=== PATIENT | female | born 1980 | race Caucasian/White ===

== ENCOUNTER 2017-11-12 08:15 | Outpatient (RCR) | payer OTHER ==
[2017-05-11 12:15] VITALS: Wt 68.5 kg
[~2017-11-12 08:15] MED LIST: 5-HY100C PO; ALBU8.5H IH; ALBU8.5H12 IH; AMIT75TA42 PO; APIX2.5T PO; BIRTH CONTROL PILL; CEL100 PO; CHLO1TAB PO; CHOL200074 PO; CRAN500C11 PO; DEXL60CA6 PO; DOXE6TAB4 PO; IBUP800T37 PO; L. A1CAP8; LOR5/325 PO; LORA-629 PO; METF-410 PO; METH1TAB18 PO; MULT-865 PO; OMEP40CA79 PO; S-AD200T PO; SACC250C6; SPIR25TA78 PO; WARF-1 PO; ZINC50TA43 PO; [UNRECOGNIZED DRUG - CODE] SQ
[2017-11-12 08:26] VITALS: BP 108/74
--- NOTE | 2017-11-12 16:18 | ONCOLOGY FOLLOW UP NOTE ---
EVENT DATE: November 12, 2017 DIAGNOSES 1. DVT of left lower extremity. 2. 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 3. Migraine headache. 4. Borderline hypercholesterolemia. 5. History of mononucleosis. CHIEF COMPLAINT The patient is here today for followup of her hypercoagulable state and DVT of the left lower extremity. HEMATOLOGY HISTORY Myrna Davila is a 37-year-old female who was diagnosed with DVT of the left lower extremity in August 2012. The patient was maintained on Coumadin for six months. The patient as off Coumadin after that and after six months, she had another Doppler ultrasound of the left lower extremity done on November 30, 2013 which showed evidence of chronic appearing, nonocclusive deep venous thrombosis of the distal portion of the left superficial femoral vein and the popliteal vein. No evidence of acute DVT. No evidence of acute pathology otherwise. The patient was maintained after that on blood thinner, and she developed bleeding with Coumadin, so the patient was maintained after that on Eliquis. She had a thrombophilia workup done when she had her blood clot, and the protein C was normal at 130. Protein S was normal at 102%. Antithrombin III was mildly low at 71. Anticardiolipin IgG and IgM were normal. Prothrombin gene mutation was negative. Factor V Leiden mutation was also negative. Thrombophilia workup came back negative except for heterozygous state for methylene tetrahydrofolate reductase C677T mutation. HISTORY OF PRESENT ILLNESS Patient is here today for followup of her hypercoagulable state and DVT of the left lower extremity. She is doing very well currently. She has only mild dry cough from recent upper respiratory tract infection, and other than that she does not have any other problem. PAST MEDICAL HISTORY 1. DVT of the left lower extremity diagnosed August 2012. 2. Migraine headache. 3. Borderline hypercholesterolemia. 4. Mononucleosis diagnosed in 2001. PAST SURGICAL HISTORY 1. In 2004, she had wisdom tooth extraction. 2. September 05, 2014, the patient had left oophorectomy for a cyst and cystectomy of the right ovary. SOCIAL HISTORY The patient is . She does not have children. She is a library employee. She has about twenty drinks per year. She denies any abuse of tobacco or illicit drugs. FAMILY HISTORY A paternal grandfather had colon cancer at the age of 52 and maternal grandfather had renal cancer in his seventies. CURRENT MEDICATIONS 1. Dexilant 60 mg once daily. 2. Celebrex 200 mg two times daily. 3. Loratadine 10 mg once daily. 4. Solaray female hormone 920 mg two times daily. 5. Chlorophyll 100 mg once daily. 6. Zinc gluconate 30 mg daily. 7. Vitamin D3 at 2000 once daily. 8. Cranberry supplement 500 mg daily. 9. Probiotic 5 daily and once daily. 10. Multivitamin once daily. 11. Metformin 1000 mg daily. 12. Spironolactone 75 mg daily, 25 mg and 50 mg daily. ALLERGIES PENICILLIN which causes anaphylaxis. SULFA which causes joint swelling and hives. REVIEW OF SYSTEMS CONSTITUTIONAL: No appetite or weight change. No fever, chills or sweating. No recent infection. HEENT: Ears: No tinnitus or hearing problem. Nose: She has occasional epistaxis. Throat: No sore throat or mouth ulcers. Eyes: No diplopia or visual changes. RESPIRATORY: Patient has some dry cough. No shortness of breath. No expectoration or hemoptysis. CARDIOVASCULAR: No chest pain, orthopnea, or paroxysmal nocturnal dyspnea (PND) . No edema. No palpitations. GASTROINTESTINAL: The patient has some nausea due to her . GENITOURINARY: No hematuria or dysuria. MUSCULOSKELETAL: No pain in the muscles, joints or bones. NEUROLOGICAL: No tingling or numbness in the hands or feet. No headaches or convulsions. HEMATOLOGIC/LYMPHATIC: She bruises easily. No enlarged lymph nodes. SKIN: No skin rash or lumps. PSYCHIATRIC: No anxiety or depression. PHYSICAL EXAMINATION GENERAL: Looks stable. Well-developed, well-nourished, and in no acute distress. VITAL SIGNS: Blood pressure 108/74, pulse 91 per minute, respirations 16 per minute, temperature 99.8, pulse ox 97% on room air. HEENT: Head: Atraumatic. No sinus tenderness to palpation. Eyes: No icterus or conjunctivitis. Mouth and throat: No oral thrush or mucositis. NECK: Supple. No cervical or supraclavicular lymphadenopathy. LUNGS: Clear to auscultation and percussion bilaterally. HEART: Regular rate and rhythm. No gallops, murmurs, clicks or rubs. ABDOMEN: Distended because of her . EXTREMITIES: No cyanosis, clubbing or edema. LYMPHATICS: No peripheral lymphadenopathy. NEUROLOGICAL: Conscious, alert and oriented times three. No focal motor or sensory deficits. PSYCHIATRIC: Mood and affect appear normal. SKIN: No skin rash, bruise or purpuric eruption. ASSESSMENT 1. Deep venous thrombosis, left lower extremity, while the patient was on hormonal therapy for bleeding. She received Coumadin for six months. After that Coumadin was discontinued. She had a Doppler ultrasound December 01, 2013 which revealed the presence of nonocclusive thrombus of the left superficial femoral vein and left popliteal vein, but there was no evidence of acute thrombosis. Thrombophilia workup came back negative, except for heterozygous state for methylenetetrahydrofolate reductase mutation C677T mutation. Patient was advised to use prophylactic Lovenox after discontinuation of her Coumadin at periods of increased risk of blood clotting. She got after that and the patient received full-dose lovenox 60 mg twice daily during her and for eight weeks after delivery. Patient is doing fine currently. She is not on any anticoagulation. Besides lovenox, also patient was switched during her post (180) period to Coumadin, which was used for a total of two months. She is doing fine currently. I am planning to see her again in six months with fasting homocysteine level, and in the meantime we will continue the multivitamins and folic acid. 2. Heterozygous state for methylenetetrahydrofolate reductase mutation C677T mutation C677%. Currently on folic acid and vitamin B complex. Will continue the same. Her last homocysteine level was 5. I am planning to check it with her next visit in six months. 3. Polycystic ovarian syndrome. 4. History of migraines. PLAN 1. Continue followup. 2. Patient to return in six months with fasting homocysteine level. 3. Patient is to contact us for any new concerns or complaints. ALLYN
== END 2017-11-13 09:48 | disposition home or self-care (01) ==
LOC: ONC 08:15
PROVIDERS: ATTEND Internal Medicine Hematology
DX: Z86.718 Personal history of other venous thrombosis and embolism (principal); E72.12 Methylenetetrahydrofolate reductase deficiency; E28.2 Polycystic ovarian syndrome; E78.00 Pure hypercholesterolemia, unspecified; Z79.899 Other long term (current) drug therapy; R05 Cough
CPT/HCPCS: 99212

== ENCOUNTER 2018-02-28 21:19 | Emergency (ER) | payer OTHER ==
[2017-05-11 12:15] VITALS: Wt 68.0 kg
[~2018-02-28 21:19] MED LIST changes: -METF-410 PO; +METF-411 PO; -SPIR25TA78 PO; +SPIR25TA80 PO
[2018-02-28] MEDS ORDERED: NS(*) 0.9% 1000 ML BAG 1,000 ML IV ONE (21:38)
[2018-02-28] MEDS ORDERED: ONDANSETRON 4 MG/2 ML VIAL IVP ONE (21:40)
[2018-02-28] MEDS ORDERED: fentaNYL CITR 100 MCG/2 ML AMP IVP ONE (21:40)
[2018-02-28] MEDS ORDERED: SPIR25TA80 PO (21:40)
[2018-02-28] MEDS ORDERED: METF-411 PO (21:40)
--- NOTE | 2018-02-28 21:46 | ER Report ---
History and Physical Time Seen By MD: 21:43 Hx. of Stated Complaint: PT REPORTS THAT SHE DEVELOPED A SHARP PAIN IN HER RIGHT ABDOMIN ABOUT ONE HOUR AGO. PT REPORTS THAT SHE HAS A CHRONIC CYST ON HER RIGHT OVARY AND THAT HER LEFT OVARY HAS BEEN REMOVED. HPI/ROS CHIEF COMPLAINT: Lower abdominal pain HISTORY OF PRESENT ILLNESS: Patient is a 37-year-old female here with complaints of right lower and periumbilical abdominal pain which started approximately 2044. Patient reports associated nausea without vomiting. She did have a prior history of a left oophrectomy however denies other abdominal surgeries. Pain is primarily located in the right lower quadrant of the abdomen. She reports that the pain is sharp and has been constant since time of onset. Denies urinary complaints, difficulty passing bowel movements, chest pain , shortness of breath. Patient is afebrile at time of evaluation. REVIEW OF SYSTEMS: Constitutional: No fever, + chills. Eyes: No discharge. ENT: No sore throat. Cardiovascular: No chest pain, no palpitations. Respiratory: No cough, no shortness of breath. Gastrointestinal: + RLQ/periumbilical abdominal pain, no vomiting, + nausea Genitourinary: No hematuria. Musculoskeletal: No back pain. Skin: No rashes. Neurological: No headache. Allergies: Coded Allergies: Penicillins (Verified Allergy, Intermediate, HIVES, 02/28/18) Sulfa (Sulfonamide Antibiotics) (Verified Allergy, Intermediate, JOINT SWELLING, 02/28/18) gluten (Verified Adverse Reaction, Unknown, ? ABD PROBLEM, AVOIDS, 02/28/18 ) Home Meds Active Scripts Oxycodone Hcl/Acetaminophen (PERCOCET 5-325 MG TABLET) 1 Each Tablet, 1 EACH PO Q4H Y for PAIN, #6 TAB 0 Refills Prov:ALEXI MAN DO 02/28/18 Ondansetron (ZOFRAN ODT) 4 Mg Tab.rapdis, 4 MG PO Q6H Y for NAUSEA/VOMITING, # 20 TAB.CATA 0 Refills Prov:ALEXI MAN DO 02/28/18 Reported Medications Spironolactone (SPIRONOLACTONE) 25 Mg Tablet, 75 MG PO DAILY, TAB 02/28/18 Metformin Hcl (METFORMIN HCL) 500 Mg Tablet, 1 TAB PO QDAY, TAB 02/28/18 Discontinued Reported Medications Albuterol Sulfate 90 Mcg/Act (PROAIR HFA 90 MCG/ACT) 8.5 Gm Hfa.aer.ad, 1-2 PUFF IH 3-4XD, INHALER 05/11/17 Metformin Hcl (METFORMIN HCL) 500 Mg Tablet, 500 MG PO BID, TAB 06/01/15 Multivitamin (DAILY MULTIPLE VITAMIN) 1 Each Tablet, 1 EACH PO DAILY 12/15/14 Cholecalciferol (Vitamin D3) (VITAMIN D-3) 2,000 Unit Capsule, 2000 UNIT PO DAILY, CAPSULE 12/15/14 Zinc Gluconate (ZINC) 50 Mg Tablet, 30 MG PO DAILY 12/15/14 Chlorophyllin/Charlotte (CHLOROPHYLL 20 MG TABLET) 1 Each Tablet, 100 MG PO DAILY 12/15/14 Loratadine (LORATADINE) 10 Mg Tablet, 10 MG PO DAILY 12/15/14 Dexlansoprazole (DEXILANT) 60 Mg Cap., 60 MG PO DAILY 12/15/14 Discontinued Scripts Ibuprofen (IBUPROFEN) 800 Mg Tablet, 800 MG PO Q8H@0400,1200,2000, #30 TAB 0 Refills Prov:MARJAN MENDOZA DO 05/13/17 Hx Smoking: No Smoking Status: Never Smoker Constitutional Vital Sign - Last 24 Hours 02/28/18 02/28/18 02/28/18 02/28/18 21:34 21:40 21:49 22:00 Temp 98.8 Pulse 76 77 71 Resp 14 B/P (MAP) 109/72 (84) 109/72 105/67 (80) Pulse Ox 95 94 97 O2 Delivery Room Air 02/28/18 02/28/18 02/28/18 02/28/18 22:04 22:09 22:13 22:30 Pulse 67 63 B/P (MAP) 100/59 (73) Pulse Ox 86 97 O2 Flow Rate 2.0 02/28/18 02/28/18 02/28/18 02/28/18 22:39 23:24 23:39 23:54 Pulse 69 64 62 73 Pulse Ox 97 100 99 99 03/01/18 00:04 B/P (MAP) 102/69 (80) Physical Exam General Appearance: The patient is alert, has no immediate need for airway protection and no signs of toxicity. + Mild distress secondary to pain Eyes: Pupils equal and round no pallor or injection. ENT, Mouth: Mucous membranes are moist. Respiratory: There are no retractions, lungs are clear to auscultation. Cardiovascular: Regular rate and rhythm. Gastrointestinal: Abdomen is soft and + tender to palpation in the periumbilical and RLQ, no masses, bowel sounds normal. Neurological: No focal neurological deficits Skin: Warm and dry, no rashes. Musculoskeletal: Neck is supple non tender. Extremities are nontender, nonswollen and have full range of motion. DIFFERENTIAL DIAGNOSIS: After history and physical exam differential diagnosis was considered for abdominal pain including but not limited to appendicitis, cholecystitis, gastritis and urinary tract infection, ovarian torsion Medical Decision Making Data Points Result Diagram: 02/28/18214902/28/182149 Laboratory Hematology Test 02/28/18 21:26 02/28/18 21:50 Urine Color Straw Urine Clarity Clear Urine pH 6.0 pH (4.8-9.5) Urine Specific Good[place] 1.013 Urine Protein Negative mg/dL (NEGATIVE) Urine Glucose (UA) Negative mg/dL (NEGATIVE) Urine Ketones Negative mg/dL (NEGATIVE) Urine Blood Negative (NEGATIVE) Urine Nitrite Negative (NEGATIVE) Urine Bilirubin Negative (NEGATIVE) Urine Urobilinogen Negative mg/dL (0.2-1.9) Urine Leukocyte Esterase Negative (NEGATIVE) Urine RBC <1 /HPF (0-2/HPF) Urine WBC <1 /HPF (0-5/HPF) Urine Squamous Epithelial Cells Many /LPF (</=FEW) Urine Bacteria Negative /HPF (NONE-FEW) Urine Mucus None /HPF (NONE-FEW) Red Blood Count 4.72 M/uL (4.17-5.56) Mean Corpuscular Volume 83.6 fL (80.0-96.0) Mean Corpuscular Hemoglobin 28.9 pg (26.0-33.0) Mean Corpuscular Hemoglobin Concent 34.6 g/dL (32.0-36.0) Red Cell Distribution Width 13.2 % (11.5-14.5) Mean Platelet Volume 7.3 fL (7.2-11.1) Neutrophils (%) (Auto) 53.9 % (39.4-72.5) Lymphocytes (%) (Auto) 36.6 % (17.6-49.6) Monocytes (%) (Auto) 6.4 % (4.1-12.4) Eosinophils (%) (Auto) 2.1 % (0.4-6.7) Basophils (%) (Auto) 1.0 % (0.3-1.4) Nucleated RBC Relative Count (auto) 0.0 /100WBC Neutrophils # (Auto) 4.5 K/uL (2.0-7.4) Lymphocytes # (Auto) 3.1 K/uL (1.3-3.6) Monocytes # (Auto) 0.5 K/uL (0.3-1.0) Eosinophils # (Auto) 0.2 K/uL (0.0-0.5) Basophils # (Auto) 0.1 K/uL (0.0-0.1) Nucleated RBC Absolute Count (auto) 0.00 K/uL Sodium Level 137 mmol/L (137-145) Potassium Level 3.7 mmol/L (3.5-5.0) Chloride Level 103 mmol/L (98-107) Carbon Dioxide Level 25 mmol/L (22-31) Blood Urea Nitrogen 17 mg/dl (7-18) Creatinine 0.70 mg/dl (0.52-1.04) Glomerular Filtration Rate Calc > 60.0 Random Glucose 107 mg/dl (75-110) Calcium Level 9.2 mg/dl (8.4-10.2) Total Bilirubin 0.3 mg/dl (0.2-1.3) Aspartate Amino Transf (AST/SGOT) 24 U/L (0-35) Alanine Aminotransferase (ALT/SGPT) 18 U/L (0-56) Alkaline Phosphatase 58 U/L (0-126) C-Reactive Protein < 0.5 mg/dl (<1.0) Total Protein 7.0 g/dl (6.3-8.2) Albumin 4.4 g/dl (3.5-5.0) Lipase 91 U/L (23-300) Human Chorionic Gonadotropin, Qual Negative (NEGATIVE) Chemistry Test 02/28/18 21:26 02/28/18 21:50 Urine Color Straw Urine Clarity Clear Urine pH 6.0 pH (4.8-9.5) Urine Specific Goodells 1.013 Urine Protein Negative mg/dL (NEGATIVE) Urine Glucose (UA) Negative mg/dL (NEGATIVE) Urine Ketones Negative mg/dL (NEGATIVE) Urine Blood Negative (NEGATIVE) Urine Nitrite Negative (NEGATIVE) Urine Bilirubin Negative (NEGATIVE) Urine Urobilinogen Negative mg/dL (0.2-1.9) Urine Leukocyte Esterase Negative (NEGATIVE) Urine RBC <1 /HPF (0-2/HPF) Urine WBC <1 /HPF (0-5/HPF) Urine Squamous Epithelial Cells Many /LPF (</=FEW) Urine Bacteria Negative /HPF (NONE-FEW) Urine Mucus None /HPF (NONE-FEW) White Blood Count 8.3 k/uL (4.5-11.0) Red Blood Count 4.72 M/uL (4.17-5.56) Hemoglobin 13.6 g/dL (12.0-16.0) Hematocrit 39.4 % (34.0-47.0) Mean Corpuscular Volume 83.6 fL (80.0-96.0) Mean Corpuscular Hemoglobin 28.9 pg (26.0-33.0) Mean Corpuscular Hemoglobin Concent 34.6 g/dL (32.0-36.0) Red Cell Distribution Width 13.2 % (11.5-14.5) Platelet Count 208 K/uL (150-450) Mean Platelet Volume 7.3 fL (7.2-11.1) Neutrophils (%) (Auto) 53.9 % (39.4-72.5) Lymphocytes (%) (Auto) 36.6 % (17.6-49.6) Monocytes (%) (Auto) 6.4 % (4.1-12.4) Eosinophils (%) (Auto) 2.1 % (0.4-6.7) Basophils (%) (Auto) 1.0 % (0.3-1.4) Nucleated RBC Relative Count (auto) 0.0 /100WBC Neutrophils # (Auto) 4.5 K/uL (2.0-7.4) Lymphocytes # (Auto) 3.1 K/uL (1.3-3.6) Monocytes # (Auto) 0.5 K/uL (0.3-1.0) Eosinophils # (Auto) 0.2 K/uL (0.0-0.5) Basophils # (Auto) 0.1 K/uL (0.0-0.1) Nucleated RBC Absolute Count (auto) 0.00 K/uL Glomerular Filtration Rate Calc > 60.0 Calcium Level 9.2 mg/dl (8.4-10.2) Total Bilirubin 0.3 mg/dl (0.2-1.3) Aspartate Amino Transf (AST/SGOT) 24 U/L (0-35) Alanine Aminotransferase (ALT/SGPT) 18 U/L (0-56) Alkaline Phosphatase 58 U/L (0-126) C-Reactive Protein < 0.5 mg/dl (<1.0) Total Protein 7.0 g/dl (6.3-8.2) Albumin 4.4 g/dl (3.5-5.0) Lipase 91 U/L (23-300) Human Chorionic Gonadotropin, Qual Negative (NEGATIVE) Urinalysis Test 02/28/18 21:26 Urine Color Straw Urine Clarity Clear Urine pH 6.0 pH (4.8-9.5) Urine Specific Goodells 1.013 Urine Protein Negative mg/dL (NEGATIVE) Urine Glucose (UA) Negative mg/dL (NEGATIVE) Urine Ketones Negative mg/dL (NEGATIVE) Urine Blood Negative (NEGATIVE) Urine Nitrite Negative (NEGATIVE) Urine Bilirubin Negative (NEGATIVE) Urine Urobilinogen Negative mg/dL (0.2-1.9) Urine Leukocyte Esterase Negative (NEGATIVE) Urine RBC <1 /HPF (0-2/HPF) Urine WBC <1 /HPF (0-5/HPF) Urine Squamous Epithelial Cells Many /LPF (</=FEW) Urine Bacteria Negative /HPF (NONE-FEW) Urine Mucus None /HPF (NONE-FEW) EKG/Imaging Imaging CT of the abdomen and pelvis with contrast: Indication: Right lower quadrant pain. Technique: Helical CT was performed through the abdomen and pelvis following IV contrast enhancement with 75 cc of Isovue-370. Multiplanar reconstructions are reviewed. One of the following dose optimization techniques was utilized in the performance of this exam: Automated exposure control; adjustment of the mA and/ or kV according to the patient's size; or use of an iterative reconstruction technique. Specific details can be referenced in the facility's radiology CT exam operational policy. Comparison: 09/05/2009 Lower lung banuelos: There is minimal linear atelectasis at both bases. No parenchymal consolidation or pleural effusion is identified. Liver: Normal in size, shape, and density. There is uniform enhancement of the venous structures. Gallbladder/biliary tree: The gallbladder is normal in size and homogeneous in density. The bile ducts are normal in caliber. Pancreas: Normal in size, shape, and density. Spleen: Normal in size, shape, and density. Adrenal glands: Within normal limits. Kidneys/urinary bladder: The kidneys appear normal in size, shape, and density. There are no signs of urinary tract calculus or obstruction. The urinary bladder appears homogeneous and unremarkable. Intestinal structures: Unremarkable, as visualized. There are no signs of obstruction or focal inflammatory changes. The appendix appears normal in size and shape. There are no signs of periappendiceal inflammation or fluid. Pelvis: The uterus appears homogeneous and unremarkable. There is a 2.3 cm cyst in the right adnexal region. A small amount of free fluid is present in the right hemipelvis, and there is a small amount of free fluid in the right lower quadrant. No circumscribed fluid collection is identified. Aorta and vascular structures: Within normal limits. Skeletal structures: Well mineralized and intact. Impression: A small cyst is present in the right adnexal region, there is a small amount of free fluid in the pelvis and right lower quadrant. The findings may indicate ovarian cyst rupture. The appendix appears normal in size, and there are no signs of acute appendicitis. Ultrasound of the pelvis: Indication: Right-sided pain. Technique: Transvaginal imaging, with Doppler. Comparison: None. Uterus: Normal in size, shape, and echogenicity, measuring 8.5 x 5.6 x 4.5 cm. There is no evidence of uterine mass, calcification, or fluid. The endometrial stripe measures 4 mm. Right ovary/adnexa: The right ovary measures 3.9 x 2.9 x 2.7 cm. 2 small simple cysts are present, measuring 2.7 cm and 1.3 cm. Doppler images of the right ovarian parenchyma demonstrates no evidence of torsion. No adnexal mass or fluid collection is identified. Left ovary/adnexa: The left ovary is surgically absent. No adnexal mass or fluid collection is identified. Free fluid: There is a small amount of anechoic fluid in the cul-de-sac. IMPRESSION: Small simple cysts are present in the right ovary. There is no evidence of ovarian torsion. There is a small amount of free fluid in the cul-de -sac. A preliminary report was discussed with Dr. Man at 2340 hours. ED Course/Re-evaluation ED Course Patient is a 37-year-old female here with complaints of right lower quadrant abdominal pain and pelvic pain which started approximately 2044. Patient was notably tender in the right lower quadrant periumbilical distribution. Patient denied urinary complaints. She was afebrile at time of evaluation. CT imaging showed scant free fluid in the pelvis and showed no appendicitis. Patient had a history of a left oophrectomy and had known cysts present on the right ovary. In order to evaluate the viability of the right ovary and blood supply, a transvaginal ultrasound was completed and showed good blood flow to the ovary as well as small amounts of fluid in the pelvis making a ruptured cyst most likely etiology of her pain. Patient was given fentanyl, fluids, Zofran with moderate relief of symptoms. Patient was given scripts for Zofran and Percocet and advised to follow-up with her family doctor in the next week. Patient was well-appearing and hemodynamically stable at time of discharge. Decision to Disposition Date: Mar 01, 2018 Decision to Disposition Time: 00:04 Depart Departure Latest Vital Signs Vital Signs Date Time Temp Pulse Resp B/P (MAP) Pulse Ox O2 Delivery O2 Flow Rate FiO2 03/01/18 00:04 102/69 (80) 02/28/18 23:54 73 99 02/28/18 22:13 2.0 02/28/18 21:40 98.8 14 Room Air Impression: Primary Impression: Ruptured ovarian cyst Condition: Improved Disposition: HOME OR SELF-CARE Referrals: [facility] [employer] (PCP) New Scripts Oxycodone Hcl/Acetaminophen (PERCOCET 5-325 MG TABLET) 1 Each Tablet 1 EACH PO Q4H Y for PAIN, #6 TAB 0 Refills Prov: ALEXI MAN DO 02/28/18 Ondansetron (ZOFRAN ODT) 4 Mg Tab.rapdis 4 MG PO Q6H Y for NAUSEA/VOMITING, #20 TAB.CATA 0 Refills Prov: ALEXI MAN DO 02/28/18 Patient Instructions: Ruptured Ovarian Cyst (ED) Additional Instructions: Please follow up with your family doctor in the next 3 days. Please return promptly should develop worsening pain, fevers, inability to keep down food. ALEXI MAN DO Feb 28, 2018 21:46
[2018-02-28 22:01] LABS: PLATELET COUNT, AUTOMATED 208 K/uL (150-450)
[2018-02-28] MEDS ORDERED: IOPAMIDOL 76% 100 ML INFUS BTL 100 ML ONE (22:23)
[2018-02-28] MEDS ORDERED: ONDA4TAB PO (23:50)
[2018-02-28] MEDS ORDERED: OXYC-865 PO (23:50)
[2018-03-01 00:04] VITALS: BP 102/69
--- NOTE | 2018-03-01 00:52 | RADIOLOGY IMAGING REPORT ---
FACILITY: [facility] PATIENT NAME: Myrna Davila : 1980 MR: [id number] V: [id number] EXAM DATE: ORDERING PHYSICIAN: ALEXI DAILY TECHNOLOGIST: Location: [facility] Patient: Myrna Davila : 1980 Visit/Account:[id number] Date of Sevice: 02/28/2018 CT of the abdomen and pelvis with contrast: Indication: Right lower quadrant pain. Technique: Helical CT was performed through the abdomen and pelvis following IV contrast enhancement with 75 cc of Isovue-370. Multiplanar reconstructions are reviewed. One of the following dose optimization techniques was utilized in the performance of this exam: Autom ated exposure control; adjustment of the mA and/or kV according to the patient's size; or use of an i terative reconstruction technique. Specific details can be referenced in the facility's radiology CT exam operational policy. Comparison: 09/05/2009 Lower lung banuelos: There is minimal linear atelectasis at both bases. No parenchymal consolidation or pleural effusion is identified. Liver: Normal in size, shape, and density. There is uniform enhancement of the venous structures. Gallbladder/biliary tree: The gallbladder is normal in size and homogeneous in density. The bile duct s are normal in caliber. Pancreas: Normal in size, shape, and density. Spleen: Normal in size, shape, and density. Adrenal glands: Within normal limits. Kidneys/urinary bladder: The kidneys appear normal in size, shape, and density. There are no signs of urinary tract calculus or obstruction. The urinary bladder appears homogeneous and unremarkable. Intestinal structures: Unremarkable, as visualized. There are no signs of obstruction or focal inflam matory changes. The appendix appears normal in size and shape. There are no signs of periappendiceal inflammation or fluid. Pelvis: The uterus appears homogeneous and unremarkable. There is a 2.3 cm cyst in the right adnexal region. A small amount of free fluid is present in the right hemipelvis, and there is a small amount of free fluid in the right lower quadrant. No circumscribed fluid collection is identified. Aorta and vascular structures: Within normal limits. Skeletal structures: Well mineralized and intact. Impression: A small cyst is present in the right adnexal region, there is a small amount of free flui d in the pelvis and right lower quadrant. The findings may indicate ovarian cyst rupture. The appendix appears normal in size, and there are no signs of acute appendicitis. A preliminary report was discussed with Dr. Daily at 2340 hours. Report Dictated By: Dustin Arreola MD at 02/28/2018 11:34 PM Report E-Signed By: Dustin Arreola MD at 03/01/2018 12:49 AM WSN:[id number]
--- NOTE | 2018-03-01 00:56 | RADIOLOGY IMAGING REPORT ---
FACILITY: [facility] PATIENT NAME: Myrna Davila : 1980 MR: [id number] V: [id number] EXAM DATE: ORDERING PHYSICIAN: ALEXI DAILY TECHNOLOGIST: Location: [facility] Patient: Myrna Davila : 1980 Visit/Account:[id number] Date of Sevice: 02/28/2018 Ultrasound of the pelvis: Indication: Right-sided pain. Technique: Transvaginal imaging, with Doppler. Comparison: None. Uterus: Normal in size, shape, and echogenicity, measuring 8.5 x 5.6 x 4.5 cm. There is no evidence o f uterine mass, calcification, or fluid. The endometrial stripe measures 4 mm. Right ovary/adnexa: The right ovary measures 3.9 x 2.9 x 2.7 cm. 2 small simple cysts are present, me asuring 2.7 cm and 1.3 cm. Doppler images of the right ovarian parenchyma demonstrates no evidence of torsion. No adnexal mass or fluid collection is identified. Left ovary/adnexa: The left ovary is surgically absent. No adnexal mass or fluid collection is identi fied. Free fluid: There is a small amount of anechoic fluid in the cul-de-sac. IMPRESSION: Small simple cysts are present in the right ovary. There is no evidence of ovarian torsio n. There is a small amount of free fluid in the cul-de-sac. A preliminary report was discussed with Dr. Daily at 2340 hours. Report Dictated By: Dustin Arreola MD at 02/28/2018 11:48 PM Report E-Signed By: Dustin Arreola MD at 03/01/2018 12:53 AM WSN:[id number]
== END 2018-03-01 00:05 | disposition home or self-care (01) ==
LOC: ER 21:30
DX: N83.201 Unspecified ovarian cyst, right side (principal)
CPT/HCPCS: 74177; 76830; 81001; 83690; 84703; 85025; 86140; 96361; 96374; 96375; 99284; J2405; J3010; J7030; Q9967; 82040; 82247; 82310; 82374; 82435; 82565; 82947; 84075; 84132; 84155; 84295; 84450; 84460; 84520

== ENCOUNTER 2018-05-27 08:00 | Outpatient (RCR) | payer OTHER ==
[2017-05-11 12:15] VITALS: Wt 69.4 kg
[2018-05-25 08:41] VITALS: BP 101/63
[~2018-05-27 08:00] MED LIST changes: -METF-411 PO; +METF-450 PO; +ONDA4TAB PO; +OXYC-865 PO
[2018-05-27 08:04] VITALS: BP 103/72
--- NOTE | 2018-05-27 20:55 | ONCOLOGY FOLLOW UP NOTE ---
EVENT DATE: May 27, 2018 DIAGNOSES 1. Deep venous thrombosis of left lower extremity. 2. 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 3. Migraine headache. 4. Borderline hypercholesterolemia. 5. History of mononucleosis. CHIEF COMPLAINT Patient is here today for followup of her hypercoagulable state and DVT of the left lower extremity. HEMATOLOGY HISTORY Myrna Davila is a 37-year-old female who was diagnosed with DVT of the left lower extremity in August 2012. The patient was maintained on Coumadin for six months. The patient was off Coumadin after that. After six months, she had another Doppler ultrasound of the left lower extremity done on November 30, 2013, which showed evidence of chronic-appearing, nonocclusive deep venous thrombosis of the distal portion of the left superficial femoral vein and the popliteal vein. No evidence of acute DVT. No evidence of acute pathology otherwise. The patient was maintained after that on blood thinner, and she developed bleeding with Coumadin, so the patient was maintained after that on Eliquis. She had a thrombophilia workup done when she had her blood clot, and the protein C was normal at 130. Protein S was normal at 102%. Antithrombin III was mildly low at 71. Anticardiolipin IgG and IgM were normal. Prothrombin gene mutation was negative. Factor V Leiden mutation was also negative. Thrombophilia workup came back negative except for heterozygous state for methylenetetrahydrofolate reductase C677T mutation. HISTORY OF PRESENT ILLNESS Patient is here today for followup of her hypercoagulable state and DVT of the left lower extremity. She is doing very well currently. She is totally asymptomatic. PAST MEDICAL HISTORY 1. DVT of the left lower extremity diagnosed August 2012. 2. Migraine headache. 3. Borderline hypercholesterolemia. 4. Mononucleosis diagnosed in 2001. PAST SURGICAL HISTORY 1. In 2004, she had wisdom tooth extraction. 2. September 05, 2014, the patient had left oophorectomy for a cyst and cystectomy of the right ovary. SOCIAL HISTORY The patient is . She does not have children. She is a library employee. She has about 20 drinks per year. She denies any abuse of tobacco or illicit drugs. FAMILY HISTORY A paternal grandfather had colon cancer at the age of 52, and maternal grandfather had renal cancer in his 70s. ALLERGIES PENICILLIN which causes anaphylaxis. SULFA which causes joint swelling and hives. CURRENT MEDICATIONS 1. Spironolactone 75 mg daily. 2. Metformin 500 mg daily. REVIEW OF SYSTEMS CONSTITUTIONAL: No appetite or weight change. No fever, chills, or sweating. No recent infection. HEENT: Ears: No tinnitus or hearing problem. Nose: She has occasional epistaxis. Throat: No sore throat or mouth ulcers. Eyes: No diplopia or visual changes. RESPIRATORY: Patient has some dry cough. No shortness of breath. No expectoration or hemoptysis. CARDIOVASCULAR: No chest pain, orthopnea, or paroxysmal nocturnal dyspnea (PND). No edema. No palpitations. GENITOURINARY: No hematuria or dysuria. MUSCULOSKELETAL: No pain in the muscles, joints, or bones. NEUROLOGICAL: No tingling or numbness in the hands or feet. No headaches or convulsions. HEMATOLOGIC/LYMPHATIC: She bruises easily. No enlarged lymph nodes. SKIN: No skin rash or lumps. PSYCHIATRIC: No anxiety or depression. PHYSICAL EXAMINATION GENERAL: Looks stable. Well developed, well nourished, and in no acute distress. VITAL SIGNS: Blood pressure 103/72, pulse 77 per minute, respirations 16 per minute, temperature 99.7, pulse ox 96% on room air. HEENT: Head: Atraumatic. No sinus tenderness to palpation. Eyes: No icterus or conjunctivitis. Mouth and throat: No oral thrush or mucositis. NECK: Supple. No cervical or supraclavicular lymphadenopathy. LUNGS: Clear to auscultation and percussion bilaterally. HEART: Regular rate and rhythm. No gallops, murmurs, clicks, or rubs. EXTREMITIES: No cyanosis, clubbing, or edema. LYMPHATICS: No peripheral lymphadenopathy. NEUROLOGICAL: Conscious, alert, and oriented times three. No focal motor or sensory deficits. PSYCHIATRIC: Mood and affect appear normal. SKIN: No skin rash, bruise, or purpuric eruption. DIAGNOSTIC DATA Fasting homocysteine level is normal at 7. ASSESSMENT 1. Deep venous thrombosis, left lower extremity, while the patient was on hormonal therapy for bleeding. She received Coumadin for six months. After that, Coumadin was discontinued. She had a Doppler ultrasound December 01, 2013, which revealed the presence of nonocclusive thrombus of the left superficial femoral vein and the left popliteal vein, but there was no evidence of acute thrombosis. Thrombophilia workup came back negative except for heterozygous state for methylenetetrahydrofolate reductase mutation, C677T mutation. Patient was advised to use prophylactic Lovenox after discontinuation of her Coumadin at periods of increased risk of blood clotting. She got after that, and patient received full-dose Lovenox 60 mg twice daily during her and for eight weeks after delivery. Patient currently off anticoagulation. During her period, the Lovenox was switched to Coumadin. She is doing very well currently. Her fasting homocysteine level is normal at 7. I plan to see her once a year with fasting homocysteine level, and the patient was advised to contact us if she will get or she will develop another blood clot. 2. Heterozygous state of methylenetetrahydrofolate reductase C677T mutation. Patient currently on folic acid and vitamin B complex. Will continue the same. Fasting homocysteine level currently is only 7. Will repeat the testing every year. 3. Polycystic ovarian syndrome, on treatment. 4. History of migraines. PLAN 1. Continue followup. 2. Patient to return in one year with fasting homocysteine level. 3. Continue folic acid and B complex. 4. Patient to contact us for any new concern or complaints, especially if she gets or develops another blood clot. XANDERD
== END 2018-06-09 08:21 | disposition home or self-care (01) ==
LOC: ONC 08:00
PROVIDERS: ATTEND Internal Medicine Hematology
DX: I82.412 Acute embolism and thrombosis of left femoral vein (principal); I82.432 Acute embolism and thrombosis of left popliteal vein; E72.12 Methylenetetrahydrofolate reductase deficiency; E28.2 Polycystic ovarian syndrome; Z79.899 Other long term (current) drug therapy; R05 Cough
CPT/HCPCS: 36415; 83090; 99212

== ENCOUNTER → 2018-07-12 | Outpatient (CLI) | payer OTHER ==
[2017-05-11 12:15] VITALS: BMI 28.4
--- NOTE | 2018-07-12 13:00 | RADIOLOGY IMAGING REPORT ---
FACILITY: [facility] PATIENT NAME: Myrna Davila : 1980 MR: [id number] V: [id number] EXAM DATE: ORDERING PHYSICIAN: DULCE MARIA MARTINES TECHNOLOGIST: Location: [facility] Patient: Myrna Davila : 1980 Visit/Account:[id number] Date of Sevice: 07/12/2018 HAND 3 OR MORE VIEW BILATERAL HISTORY: Minimal bilateral hands. Several months duration. No known history of injury. COMPARISON: None. FINDINGS: Three views right hand are submitted. Bony mineralization is within normal limits. Distal radius an d ulna are intact. Radiocarpal and intercarpal articulations are appropriate without fracture or und erlying destructive osseous process. No erosive articular change. No periarticular calcifications o r significant underlying degenerative change. No periosteal reaction or foreign body. Three views left hand are submitted. Overall, mineralization is appropriate. The distal radius and ulna are intact. Radiocarpal and intercarpal articulations are within normal limits. There is no ev idence of erosive articular change or significant underlying degenerative change. No soft tissue kenneth cification. No periosteal reaction or acute finding. IMPRESSION: Unremarkable radiographic appearance of the hands Report Dictated By: Ezequiel Hayes MD at 07/12/2018 12:54 PM Report E-Signed By: Ezequiel Hayes MD at 07/12/2018 12:56 PM WSN:[id number]
== END ==
LOC: LAB 10:07
PROVIDERS: ATTEND Nurse Practitioner Family
DX: M20.002 Unspecified deformity of left finger(s) (principal); M67.942 Unspecified disorder of synovium and tendon, left hand; M25.549 Pain in joints of unspecified hand
CPT/HCPCS: 36415; 85651; 86038; 86430